=== PATIENT | female | born 1940 | race Caucasian/White ===

== ENCOUNTER 2023-10-17 11:15 | Outpatient (RCR) | payer MEDICARE, BC, SELFPAY ==
--- NOTE | 2023-10-11 15:24 | PT.OPDNX ---
PT [facility] Daily Note PT [facility] Daily Note Start: 09/09/23 09:38 Freq: Status: Active Protocol: Document 10/11/23 12:18 NLR (Rec: 10/11/23 15:22 NLR [id number]) E-signed By Sherri Heller DPT PT OP Daily Progress Note Visit Information Note Type Daily Note Visit Number 5 Insurance Information Insurance Name Medicare B,Blue Cross/Blue Shield Medical Diagnosis M17.12 Unilateral primary osteoarthritis, left knee Treating Diagnosis M25.562 Pain in L knee M25.662 Stiffness L knee Referring MD Linda Delgado PA-C ([facility]) Subjective Preferred Name MADI Subjective Patient reports whatever we did last week made a huge difference, my knee feels straighter and less pain. She asks about exercises she can do for her flat feet. Pain Comments 2/10 this morning (5/10 high over the past week). Pain can be sharp and/or achy. Sitting she has no pain. Patient takes 2 Tylenol BID. She takes Ibuprofen PRN during the day (several times per week). She uses Biofreeze, ice (she tries to do every day ). She has Voltaren but has not yet tried it due to fear over the package insert precautions. Precautions Treatment Precautions/Contraindications R knee TKA 2018 Weight Bearing Status Full Weight Bearing Home Exercise Home Exercise Comments Assessed and educated in HEP today. PDF was printed for patient. Instructions were provided for accessing HEP on [employer] [facility] [employer] on phone. Access Code: [email or web address] URL: [email or web address] Date: 10/11/2023 Prepared by: Sherri Campos Exercises - Seated Hamstring Stretch - 1-2 x daily - 5-7 x weekly - 1 -2 reps - 30-90 s hold - stretch exercise type - Seated Hip Abduction with Resistance - 1-2 x daily - 5- 7 x weekly - 2 sets - 10 reps - 2-3 second hold - Supine Quad Set on Towel Roll - 1-2 x daily - 5-7 x weekly - 2 sets - 10 reps - 2- 3 second hold - strength exercise type - Small Range Straight Leg Raise - 1-2 x daily - 5-7 x weekly - 2 sets - 10 reps - 2- 3 second hold - strength exercise type - Sidelying Quadriceps Stretch with Strap - 1-2 x daily - 5 -7 x weekly - 1-2 reps - 15-60 second hold - stretch exercise type - Heel Raises with Counter Support - 1 x daily - 5-7 x weekly - 2 sets - 10 reps - 2- 3 second hold - strength/ balance exercise type Patient Education - Ice Objective Other/Pertinent Objective HAND DOM: RIGHT ROM: 3-110 L knee (mild improvement in knee AROM noted ) STRENGTH: L quad 4-/5, L HS 3+ /5, L HF 4-/5 PALPATION: Tender to palpation L medial knee joint line, medial patellar tendon and pes anserine POSTURE: FHON, forward rounded shoulders, significant L knee genuvalgus and significant L>R pes planus EDEMA: Moderate edema mid thigh to ankle L leg FLEXIBILITY: Hypoflexibility noted L quad, IT band, hamstring GAIT: L>R genuvalgus, uses a SPC and at home a four wheeled walker FOOTWEAR: Wears SAS with [employer]kin ankle sleeves on both feet (6-7 years) - continues to fall into arches significantly OTHER PMH: HTN (controlled), arthritis, thyroid cancer ( remote), arthritis Patient Instructed in Risks/Benefits Yes Therapeutic Exercise Therapeutic Exercise Minutes (minutes) 42 Therapeutic Exercise: To Restore - Quad stretches - unable to Functional Status achieve stretch in sidelying or prone without significant assistance - standing she is unable to get foot close enough to her without using a chair which does not appear safe, and sitting turned to R with L knee off surface with supervision in front for safety is effective but not safe. Best option is sidelying with stretch strap - gave her info on stretch strap - Standing heel raises at counter - Seated prolonged HS stretch - SLR - patient taking higher than instructed but only a few inches - Supine banded bridge with red band - Seated banded hip abduction with red band - Supine SAQ with QS Treatment Minutes Timed Code Treatment Minutes 42 Total Treatment Time 42 Billing Units Therapeutic Exercise Units 3 Assessment/Impression Assessment/Impression Patient notes improvement in knee pain specifically with quad stretches. We struggled a bit finding a position to do quad stretch independently, but she is able to achieve stretch in sidelying with stretch strap. She wonders about foot mechanics and exercises to strengthen her arches. She tolerates heel raises at counter, but considering she has had pes planus her entire lift I think it's unreasonable to expect much difference with these. She sees Dr. Torres on 10/14/23. Plan of Care Physical Therapy Goals 1. Patient will be independent with home exercise program as instructed, modified and progressed by physical therapist in order to be independently and actively participating in their rehabilitation and return to prior level of function. Goal to be achieved by 12/06/2023. 2. Patient will demonstrate ability to walk for 30 minutes (s) without significant increase in pain greater than 2/10 to allow patient to be able to safely and independently return to participation in desired level of function with daily activities such general housekeeping without pain or difficulty. Goal to be achieved by 12/06/2023. 3. Patient will ascend/descend 2 full flight(s) of stairs with gaib-jaqw-qqex pattern without significant increase in difficulty or pain over 2/ 10 allowing for safe and independent mobility through their home/work environment. Goal to be achieved by 2023. Daily Plan of Care Continue per POC Daily Plan of Care Comments Pain improved over the past week. She is independent in her HEP, she sees Dr. Torres on 10/13 and returns for her final PT visit 10/16. She is hoping to avoid knee surgery. Equipment Information Equipment Information FWW and SPC with quad pod base . Recertification Information Initial Certification Date 09/09/23 Recertification Start Date 12/08/23
== END 2023-12-05 15:02 | disposition home or self-care (01) ==
PROVIDERS: PCP Student in an Organized Health Care Education/Training Program; Visit Provider Physician Assistant Surgical
DX: M17.12 Unilateral primary osteoarthritis, left knee (principal); Z51.89 Encounter for other specified aftercare
CPT/HCPCS: 97110; 97161; 97535

== ENCOUNTER 2023-11-12 07:28 | Day surgery (SDC) | payer MEDICARE, BC, SELFPAY ==
[2023-11-12] VITALS (24 sets, daily range): BP systolic 90–153; BP diastolic 55–79; PULSE 55–69; RESP 12–18; TEMP 35.5–36.9; O2SAT 93–100; BMI 26.7
[2023-11-12] MEDS: LACTATED RINGERS 1000 ML 1,000 ML 100 ML IV (08:00)
[2023-11-12] MEDS: OXYCODONE (CR) 10 MG TAB.ER.12H PO (08:00)
[2023-11-12] MEDS: SODIUM CHLORIDE 0.9 % (FLUSH) 10 ML SYRINGE IVF (08:00)
[2023-11-12] MEDS: CELECOXIB 200 MG CAPSULE PO (08:00)
[2023-11-12] MEDS: ACETAMINOPHEN 500 MG TABLET 1000 MG PO ×3 (08:00→21:07)
[2023-11-12] MEDS: SCOPOLAMINE 1 MG/3 DAY PATCH 1 PATCH TRANSDERMA (08:50)
[2023-11-12] MEDS: MIDAZOLAM HCL 1 MG/ML inj IVP (08:54)
--- NOTE | 2023-11-12 09:13 | P.NB_ITS ---
Nerve Block Nerve Block Time Seen by Provider: 09:00 Date Seen: 11/12/23 Type of block requested by surgeon for post-operative analgesia: geniculars and adductor canal Side: left Time out performed: Yes Verification of patient name: Yes Verification of date of : Yes Site marking: not applicable Name of person performing procedure: Barry Kumar Continuous monitoring Was continuous monitoring of O2 sat, B/P, equipment monitor phototypesetting, recorded every 15 minutes?: Yes Procedure Checklist: sterile prep, needles and gloves Ultrasound guided. Images saved: Yes Medications given in 5ml increments after negative aspiration: Ropivicaine %: 0.5 mL: 30 Needle gauge: 20 Decadron (mg): 10 Precedex (mcg): 25 Patient tolerated procedure well: Yes Block Charges Block Charge (with Pro Fee): Femoral Nerve Use of Ultrasound Machine for Block: Yes- US Guidance/pain block
--- NOTE | 2023-11-12 09:16 | SUR.PREOP ---
TIME?OUT:?0854 PT/RN/MDA?VERIFICATION?OF?SURGICAL?SITE,?PROCEDURE,?AND?CONSENT OBTAINED?PRIOR?TO?INVASIVE?PROCEDURE.
[2023-11-12] MEDS: CEFAZOLIN 2 GM INJ IVP (09:28)
[2023-11-12] MEDS: TRANEXAMIC ACID 100 MG/ML INJ 1000 MG IV (09:31)
--- NOTE | 2023-11-12 09:53 | SUR.OPER ---
SDS stated patient has an open wound under toe on right foot
--- NOTE | 2023-11-12 11:08 | CRLHL7_ITS ---
For Patients: As a result of the Cures Act, medical imaging exams and procedure reports are released immediately into your electronic medical record. You may view this report before your referring provider. If you have questions, please contact your health care provider. Indication: post op Technique: Two views left knee Findings/Impression: Hardware from a left total knee arthroplasty is in satisfactory position. Bone alignment is normal. No sign of acute fracture. Postop changes are within normal limits. Dictated by Barry Ortiz MD @ 11/12/2023 12:39:52 PM (Electronically Signed)
--- NOTE | 2023-11-12 11:10 | P.ORPRC_ITS ---
Procedure Note Date of procedure: 11/12/23 Procedure: PREOPERATIVE DIAGNOSIS: Left knee osteoarthritis POSTOPERATIVE DIAGNOSIS: Left knee osteoarthritis NAME OF OPERATION: Left total knee arthroplasty SURGEON: Hussein Torres MD STENCILER: TATYANA Gamez ANESTHESIA: Spinal ESTIMATED BLOOD LOSS: 0 mL COMPLICATIONS: None SPECIMENS: None DRAINS: None PREOPERATIVE ANTIBIOTICS: Ancef 2 grams IMPLANTS: 1. J&J Attune revision CRS # 7 posterior stabilized femur, with a 14 mm x 50 mm cemented stem 2. # 5 revision CRS fixed-bearing tibia, with a 14 mm x 50 mm cemented stem 3. # 7 posterior stabilized, 6 mm fixed-bearing polyethylene 4. 41 patella INDICATIONS: The patient is a 83-year-old with a longstanding history of severe, unrelenting left knee pain secondary to end-stage (grade IV) left knee osteoarthritis. Despite appropriate nonoperative management, including activity modification, anti-inflammatories, imrf-zfa-qlejqwd pain medication, bracing, physical therapy, and injections they continue to have pain and disability. Operative intervention was offered. The risks, benefits and expected outcomes were discussed in detail. These included but were not limited to: Infection, bleeding, injury to blood vessel or nerve, venous thromboembolism. All questions were answered to their satisfaction. Use of an clerical administrative assistant was necessary throughout the case for patient positioning and safety, soft tissue retraction, and closure. PROCEDURE: Spinal anesthesia was administered. The patient was placed supine on the operating table. The clerical administrative assistant made sure the patient was positioned appropriately. The lower extremity was prepped and draped in the usual sterile fashion. The limb was exsanguinated with the Cruz bandage. The pneumatic tourniquet was inflated to 300 mmHg. A standard anterior incision was made with the knee in flexion. Subcutaneous dissection was sharply taken through fascial layer #1. Full-thickness medial and lateral flaps were elevated. The clerical administrative assistant retracted the soft tissues and protected them throughout the case. A standard subvastus approach was made. The patella was subluxed. The infrapatellar fat pad was debrided. The menisci and cruciate ligaments were sharply d?brided. Marginal osteophytes were d?br ided with the rongeur. The drill was used to penetrate the femoral canal. The canal was aspirated and irrigated with pulse lavage. The intramedullary femoral guide was placed for a 5-degree valgus cut, removing 12 mm off the distal femur. The saw was used to make the cut. Whitesides line and the trans epicondylar axis were marked. The femoral sizing guide was pinned onto the distal femur. Three degrees of external rotation nicely parallels the transepicondylar axis. Pins were placed for posterior referencing. The four-in-one cutting guide was pinned onto the distal femur. The anterior, posterior, and chamfer cuts were made. The clerical administrative assistant protected the collateral ligaments. The revision trial was placed. The box cuts were made. The drill was used x2. The stemmed, boxed trial was placed and was an excellent fit. Attention was then turned to the proximal tibia. The extramedullary tibial guide was placed for a neutral varus/valgus cut with 5 degrees of posterior slope, removing 4 mm based off the medial tibial surface. The clerical administrative assistant protected the collateral ligaments and the neurovascular bundle. The saw was used to make the cut. Trial components were placed. The knee was nicely balanced in both flexion and extension. The trial components were removed. The tray was placed in appropriate rotation, parallel to our tibial cutting pins. It was pinned by the clerical administrative assistant and the drill x2 was used. The stemmed tibial trial was placed. The punch was used. The tray was removed. The punch was used again. Attention was then turned to the patella. [place] patellar thickness was 24 mm. The lobster claw resection guide was used with the 9.5 mm chris. The saw was used to make the cut. Drill holes were made by the clerical administrative assistant. The trial was placed and was an excellent fit. Cancellous surfaces were irrigated with pulse lavage and thoroughly dried by the clerical administrative assistant. We cemented the tibial component, then the femoral component. We impacted the 6 mm polyethylene onto the tibial tray. The knee was brought into full extension. We then cemented the patellar component. Excessive cement was removed. The cement was allowed to harden. The knee was taken through a range of motion and was found to be nicely balanced in both flexion and extension. The patella tracks centrally. The clerical administrative assistant did a three minute dilute Betadine solution soak. The clerical administrative assistant irrigated the wound with 3 liters of normal saline via pulse lavage. The clerical administrative assistant reapproximated the extensor mechanism with #1 Vicryl in an interrupted olfnvx-yv-opkps fashion. The clerical administrative assistant then ran the extensor mechanism with a #1 PDO Stratafix. The clerical administrative assistant closed the subcutaneous tissues with a 3-0 Stratafix and the skin with a running 3-0 Stratafix in a subcuticular fashion. Glue was used to seal the skin. The clerical administrative assistant placed a dry dressing. Sponge and needle counts were correct x2. The patient tolerated the procedure well. There were no apparent complications. They were carefully transferred to the hospital bed and taken to the postanesthesia care unit in satisfactory condition. PLAN: The patient will be mobilized with physical therapy. Aspirin will be used for DVT prophylaxis. They will be discharged to home once medically appropriate.
--- NOTE | 2023-11-12 11:57 | W.ANESCHARGE ---
Anesthesia Charges Start Date/Time Anesthesia Start Date: 11/12/23 Anesthesia Start Time: 09:15 Stop Date/Time Anesthesia Stop Date: 11/12/23 Anesthesia Stop Time: 11:55
[2023-11-12] MEDS: LACTATED RINGERS 1000 ML 1,000 ML 35 ML IV (12:06)
[2023-11-12] MEDS: HYDROmorphone 0.5 mg/0.5 ml inj IVP (13:10)
--- NOTE | 2023-11-12 15:36 | PC.NURSE ---
shift note: post op vss initiated @ 1235. pt tolerating fluids and ice. PP+ bilat. IS to 1500. drsg to lt knee c/d/i. kenia skinner in place due to low temp
[2023-11-12] MEDS: CEFAZOLIN 1 GM in 0.9 % SODIUM CHLORIDE Mini-bag 100 ML IVPB ×2 (15:43→23:36)
[2023-11-12] MEDS: OXYCODONE 5 MG TABLET PO (15:51)
[2023-11-12] MEDS: ONDANSETRON 2 MG/ML inj 4 MG IVP (16:37)
--- NOTE | 2023-11-12 17:33 | PM.IMCN1 ---
Date of Consult Patient: Joshua Patient Consult date: 11/12/23 Requesting Physician: Orthopedics Primary Care Provider: Ariela Canales PA-C Consult Narrative Narrative: Joya Casper is a 83 year old female seen in consultation for management of medical problems following left knee arthroplasty. Procedure performed today by Dr. Torres. No operative complications. Patient reports doing well at the time I see her. She was chilled after surgery and has been warmed up with a Dino Hugger. Her pain is adequately controlled at this point. She has a history of severe postoperative nausea and vomiting but reports this has been well controlled with the placement of a scopolamine patch. Preoperatively she has been doing well with no recent illness or injury. Preop physical did not identify any significant perioperative medical concerns. Review of Systems Narrative: No recent concerns except she is developing calluses on her 2nd and 4th toes of her right foot. Referred to Podiatry for this [facility] Medical History (Updated 11/12/23 @ 17:40 by Jaun Ann MD) Postoperative nausea and vomiting ?R11.2 - Nausea with vomiting, unspecified (ICD-10) ?Z98.890 - Other specified postprocedural states (ICD-10) Spinal stenosis of lumbar region ?M48.061 - Spinal stenosis, lumbar region without neurogenic claudication (ICD-10) Osteopenia ?M85.80 - Other specified disorders of bone density and structure, unspecified site (ICD-10) Colon polyps ?K63.5 - Polyp of colon (ICD-10) Hypercholesteremia ?E78.00 - Pure hypercholesterolemia, unspecified (ICD-10) Degenerative arthritis ?M19.90 - Unspecified osteoarthritis, unspecified site (ICD-10) GERD (gastroesophageal reflux disease) ?K21.9 - Gastro-esophageal reflux disease without esophagitis (ICD-10) Hypertension ?I10 - Essential (primary) hypertension (ICD-10) Thyroid cancer (01/20/14) ?C73 - Malignant neoplasm of thyroid gland (ICD-10) Surgical History (Updated 11/12/23 @ 17:40 by Jaun Ann MD) History of arthroplasty of left knee ?Z96.652 - Presence of left artificial knee joint (ICD-10) History of arthroscopy of right knee (09/14/09) ?Z98.890 - Other specified postprocedural states (ICD-10) History of thyroidectomy (01/04/12) ?E89.0 - Postprocedural hypothyroidism (ICD-10) History of breast biopsy (1988) ?Z98.890 - Other specified postprocedural states (ICD-10) History of lumpectomy ?Z98.890 - Other specified postprocedural states (ICD-10) History of tonsillectomy (1947) ?Z90.89 - Acquired absence of other organs (ICD-10) History of hysterectomy (04/1999) ?Z90.710 - Acquired absence of both cervix and uterus (ICD-10) History of total right knee replacement (04/17/17) ?Z96.651 - Presence of right artificial knee joint (ICD-10) Family History Sister Uterine cancer Mother Pancreatic cancer Daughter Breast cancer Father High blood pressure Alzheimers disease Diabetes Stroke Social History (Updated 11/12/23 @ 17:36 by Jaun Ann MD) Narrative: She lives alone in her own home. She has 4 steps to get into the house but then can live on 1 level. Immediately postoperatively she plans to live with her sister in [place]. Her sister has a town house with no stairs. She does not smoke. She does not drink alcohol. Healthcare power of criminal defense attorney would be her daughter and son. What is your current living situation?: I presently have a place to live Problems where you live: no known problems In the past 12 months, utilities in danger of being shut off: no In past 12 months, lack of transportation kept you from medical appts, meetings, work, or getting things needed for daily living: no In the past 12 mos, have been you worried that your food would run out before you had money to buy more?: never true In the past 12 mos, the food you bought just didn't last and you didn't have money to buy more?: never true Smoking Status: Never smoker Do you use any of these nicotine containing products: None Second hand tobacco smoke exposure: No How often do you have a drink containing alcohol: never AUDIT-C Alcohol total score: 0 Non-prescribed substance use: denies use Caffeine: No How often does anyone, including family, friends and others, physically hurt you: never How often does anyone, including family, friends and others, insult or talk down to you: never How often does anyone, including family, friends and others, threaten you with harm: never How often does anyone, including family, friends and others, scream or curse at you: never Meds Home Medications and Allergies Home Medications ?Medication ?Instructions ?Recorded ?Confirmed ?Type amlodipine 5 mg tablet 5 mg PO DAILY 08/20/23 11/12/23 History famotidine 40 mg tablet 40 mg PO HS 08/20/23 11/12/23 History hydrochlorothiazide 25 mg tablet 12.5 mg PO QAM 08/20/23 11/12/23 History losartan 25 mg tablet 25 mg PO DAILY 08/20/23 11/12/23 History montelukast 10 mg tablet 10 mg PO HS 08/20/23 11/12/23 History pravastatin 20 mg tablet 20 mg PO HS 08/20/23 11/12/23 History calcium carbonate (Tums) 300 mg PO TID 11/04/23 11/12/23 History cetirizine 10 mg tablet (Zyrtec) 10 mg PO DAILY 11/04/23 11/12/23 History cholecalciferol (vitamin D3) 25 25 mcg PO DAILY 11/04/23 11/12/23 History mcg (1,000 unit) capsule diphenhydramine 25 1 tab PO QHS PRN 11/04/23 11/12/23 History mg-acetaminophen 500 mg tablet (Tylenol PM Extra Strength) mometasone 0.1 % topical cream 1 applic topical DAILY 11/04/23 11/12/23 History Allergies Allergy/AdvReac Type Severity Reaction Status Date / Time Sulfa (Sulfonamide Allergy Verified 11/12/23 07:37 Antibiotics) trimethoprim Allergy Verified 11/12/23 07:37 Exam Narrative: Exam Narrative: She is alert and appears in no distress. She gives her own history. Eyes normal. Oropharynx normal. Neck is supple without mass or adenopathy. Respirations are clear to auscultation. Cardiovascular: S1, S2, regular rate and rhythm. No murmur gallop or rub. Abdomen: Bowel sounds active. Abdomen is soft without tenderness or mass. Extremities with intact pulses and sensation. No edema. Strength in bilateral feet and ankles is normal. She has small calluses on the tips of her 2nd and 4th toes of the right foot as well as a callus overall a subcutaneous mass on the medial right foot arch. These are not open wounds or draining. No erythema or tenderness. Const: Vital Signs, click to edit/add: Vital Signs - 24 hr 11/12/23 08:32 11/12/23 08:56 11/12/23 09:00 Temperature 97.7 F Pulse Rate 67 63 59 L Pulse Rate [Pulse Oximeter] Respiratory Rate 16 16 16 Blood Pressure 153/74 H 133/60 126/62 Blood Pressure [Ri ght Arm] Pulse Oximetry 96 100 100 Oxygen Delivery Me thod Room Air Room Air Nasal Cannula Oxygen Flow Rate 2 11/12/23 09:05 11/12/23 11:50 11/12/23 11:55 Temperature 97.1 F L Pulse Rate 55 L 64 61 Pulse Rate [Pulse Oximeter] Respiratory Rate 16 16 14 Blood Pressure 127/61 90/59 L 90/63 Blood Pressure [Ri ght Arm] Pulse Oximetry 96 95 95 Oxygen Delivery Me thod Nasal Cannula Nasal Cannula Oxygen Flow Rate 2 2 11/12/23 12:00 11/12/23 12:05 11/12/23 12:10 Temperature Pulse Rate 68 61 65 Pulse Rate [Pulse Oximeter] Respiratory Rate 14 12 14 Blood Pressure 98/55 L 91/58 L 92/79 Blood Pressure [Ri ght Arm] Pulse Oximetry 95 96 95 Oxygen Delivery Me thod Room Air Oxygen Flow Rate 11/12/23 12:15 11/12/23 12:21 11/12/23 12:35 Temperature 96.6 F L 95.9 F L Pulse Rate 60 59 L 62 Pulse Rate [Pulse Oximeter] Respiratory Rate 16 14 16 Blood Pressure 97/62 97/59 L 101/63 Blood Pressure [Ri ght Arm] Pulse Oximetry 94 97 94 Oxygen Delivery Me thod Room Air Oxygen Flow Rate 11/12/23 12:35 11/12/23 12:35 11/12/23 12:45 Temperature 95.9 F L 95.9 F L 96 F L Pulse Rate 62 61 Pulse Rate [Pulse Oximeter] 62 Respiratory Rate 16 16 16 Blood Pressure 101/63 111/65 Blood Pressure [Ri ght Arm] 101/63 Pulse Oximetry 94 94 95 Oxygen Delivery Me thod Room Air Room Air Room Air Oxygen Flow Rate 11/12/23 13:00 11/12/23 13:15 11/12/23 14:30 Temperature 96 F L 96 F L 97.8 F Pulse Rate 64 69 62 Pulse Rate [Pulse Oximeter] Respiratory Rate 16 16 16 Blood Pressure 115/63 122/74 122/68 Blood Pressure [Ri ght Arm] Pulse Oximetry 94 96 93 Oxygen Delivery Me thod Room Air Room Air Room Air Oxygen Flow Rate 11/12/23 14:49 11/12/23 14:50 11/12/23 15:00 Temperature 96 F L 96 F L Pulse Rate 62 56 L Pulse Rate [Pulse Oximeter] Respiratory Rate 16 16 16 Blood Pressure 123/70 117/67 Blood Pressure [Ri ght Arm] Pulse Oximetry 96 96 95 Oxygen Delivery Me thod Room Air Room Air Room Air Oxygen Flow Rate 11/12/23 15:30 11/12/23 16:30 Temperature 97.4 F L 97.1 F L Pulse Rate 64 61 Pulse Rate [Pulse Oximeter] Respiratory Rate 16 16 Blood Pressure 121/66 115/64 Blood Pressure [Ri ght Arm] Pulse Oximetry 95 95 Oxygen Delivery Me thod Room Air Room Air Oxygen Flow Rate Documenting provider has reviewed patient's vital signs: yes Assessment and Plan Assessment and plan (1) History of arthroplasty of left knee: Problem comment: 11/12/2023. Dr. Torres. No complications. Status: Acute (2) Postoperative nausea and vomiting: Problem comment: Well managed with scopolamine patch. Continue to monitor Status: Acute (3) Hypertension: Problem comment: Resume blood pressure medications as required by blood pressure. Status: Acute Plan Patient admitted for evaluation and management of postoperative complications including postoperative nausea and vomiting, management of chronic medical problems and chronic medications, physical therapy to evaluate and treat. Anticipate discharge with her sister tomorrow for outpatient follow-up.
[2023-11-12] MEDS: FAMOTIDINE 20 MG TABLET 40 MG PO (21:08)
[2023-11-12] MEDS: SENNOSIDES 1 TAB TABLET 2 TAB PO (21:09)
[2023-11-12] MEDS: ASPIRIN 81 MG TABLET EC PO (21:09)
[2023-11-12] MEDS: PRAVASTATIN SODIUM 20 MG TABLET PO (21:09)
[2023-11-12] MEDS: CALCIUM CARBONATE 500 MG CHEW PO (21:10)
[2023-11-12] MEDS: METOPROLOL TARTRATE 25 MG TABLET 12.5 MG PO (21:10)
[2023-11-12] MEDS: MONTELUKAST 10 MG TABLET PO (21:10)
[2023-11-13] MEDS: ACETAMINOPHEN 500 MG TABLET 1000 MG PO ×2 (01:44→08:07)
[2023-11-13] MEDS: LACTATED RINGERS 1000 ML 1,000 ML 75 ML IV (01:45)
[2023-11-13 01:47] VITALS: BP 144/71; PULSE 76; RESP 18; TEMP 36.6; O2SAT 97
[2023-11-13] MEDS: OXYCODONE 5 MG TABLET PO (06:21)
[2023-11-13 06:23] LABS: Basophils Percent Auto 0.1 % (0.0-3.0); Hematocrit 35.2 % (33.0-51.0); Hemoglobin* 11.7 gm/dL (12.0-16.0); Immature Granulocytes Pct Auto 0.1 %; Lymphocytes Percent Auto 9.1 % (20-44); Mean Corpuscular HGB Conc 33 gm/dL (32-36); Mean Corpuscular Hemoglobin 32 pg (26-34); Mean Corpuscular Volume 95 fL (80-100); Monocytes Percent Auto 7.3 % (0.0-11.0); Neutrophils Percent Auto 83.4 % (42.0-72.0); Platelet Count* 240 K/uL (140-440); Red Blood Count 3.69 m/uL (4.00-5.20); Slide Review Reflex No; White Blood Count* 14.91 K/uL (4.50-11.00)
[2023-11-13 06:38] LABS: Potassium* 3.8 mmol/L (3.6-5.1); Sodium* 133 mmol/L (135-149)
[2023-11-13 06:41] LABS: Blood Urea Nitrogen* 24 mg/dL (7-30); Creatinine* 0.7 mg/dL (0.5-1.5); Est. Creatinine Clearance* 42.18; Estimated Glomerular Filt Rate 86 ml/min
--- NOTE | 2023-11-13 06:50 | PC.NURSE ---
Pt is alert and oriented x3. Afebrile. Pt rates pain 2-4/10 in left knee, managed with cold pack,?scheduled Tylenol and PRN medications. Pt's left knee dressing is CDI. During gcokr-lb-xmruk?report previous RN reported pt had not voided in 6 hr since getting back from surgery. Previous RN reported bladder scanning pt for around 480 ml and straight catheterized pt for 650 ml at 2000. Pt was able to void independently around 0200 with 200 ml output and?300 ml output around 0600. Pt encouraged pt to drink more water when awake. Pt is up SBA with walker and gait belt and tolerating a regular diet.?
[2023-11-13 07:00] VITALS: BP 129/66; PULSE 94; RESP 16; TEMP 36.4; O2SAT 97
[2023-11-13 07:37] LABS: INR 0.95 (0.91-1.10); Prothrombin Time 13.3 Seconds
[2023-11-13] MEDS: SENNOSIDES 1 TAB TABLET 2 TAB PO (08:05)
[2023-11-13] MEDS: CALCIUM CARBONATE 500 MG CHEW PO (08:05)
[2023-11-13] MEDS: ASPIRIN 81 MG TABLET EC PO (08:05)
[2023-11-13] MEDS: CETIRIZINE HCL 10 MG TABLET PO (08:05)
[2023-11-13] MEDS: AMLODIPINE 5 MG TABLET PO (08:06)
[2023-11-13] MEDS: METOPROLOL TARTRATE 25 MG TABLET 12.5 MG PO (08:06)
--- NOTE | 2023-11-13 08:26 | PM.ORPN ---
Subjective Subjective Time Seen by Provider: 07:45 Date Seen: 11/13/23 Principal diagnosis: Status post left knee replacement Interval history: Joya is comfortable this morning. She denies nausea vomiting. She will discharge today to her sister's home. Ortho Exam Narrative Exam Narrative: Alert and oriented x3. Patient is in no acute distress. Converses without labored breathing. Hearing is grossly intact. Ambulates with a walker. Examination of the left lower extremity shows minimal soft tissue edema. Ecchymosis at the thigh. CMS intact left lower extremity. No erythema or warmth or sign of infection. Minimal effusion. She is able to straight leg raise. Calves are soft and nontender. Const Vital Signs, click to edit/add: Vital Signs - 24 hr 11/12/23 08:32 11/12/23 08:56 11/12/23 09:00 Temperature 97.7 F Pulse Rate 67 63 59 L Pulse Rate [Pulse Oximeter] Respiratory Rate 16 16 16 Blood Pressure 153/74 H 133/60 126/62 Blood Pressure [Right Arm] Pulse Oximetry 96 100 100 Oxygen Delivery Method Room Air Room Air Nasal Cannula Oxygen Flow Rate 2 11/12/23 09:05 11/12/23 11:50 11/12/23 11:55 Temperature 97.1 F L Pulse Rate 55 L 64 61 Pulse Rate [Pulse Oximeter] Respiratory Rate 16 16 14 Blood Pressure 127/61 90/59 L 90/63 Blood Pressure [Right Arm] Pulse Oximetry 96 95 95 Oxygen Delivery Method Nasal Cannula Nasal Cannula Oxygen Flow Rate 2 2 11/12/23 12:00 11/12/23 12:05 11/12/23 12:10 Temperature Pulse Rate 68 61 65 Pulse Rate [Pulse Oximeter] Respiratory Rate 14 12 14 Blood Pressure 98/55 L 91/58 L 92/79 Blood Pressure [Right Arm] Pulse Oximetry 95 96 95 Oxygen Delivery Method Room Air Oxygen Flow Rate 11/12/23 12:15 11/12/23 12:21 11/12/23 12:35 Temperature 96.6 F L 95.9 F L Pulse Rate 60 59 L 62 Pulse Rate [Pulse Oximeter] Respiratory Rate 16 14 16 Blood Pressure 97/62 97/59 L 101/63 Blood Pressure [Right Arm] Pulse Oximetry 94 97 94 Oxygen Delivery Method Room Air Oxygen Flow Rate 11/12/23 12:35 11/12/23 12:35 11/12/23 12:45 Temperature 95.9 F L 95.9 F L 96 F L Pulse Rate 62 61 Pulse Rate [Pulse Oximeter] 62 Respiratory Rate 16 16 16 Blood Pressure 101/63 111/65 Blood Pressure [Right Arm] 101/63 Pulse Oximetry 94 94 95 Oxygen Delivery Method Room Air Room Air Room Air Oxygen Flow Rate 11/12/23 13:00 11/12/23 13:15 11/12/23 14:30 Temperature 96 F L 96 F L 97.8 F Pulse Rate 64 69 62 Pulse Rate [Pulse Oximeter] Respiratory Rate 16 16 16 Blood Pressure 115/63 122/74 122/68 Blood Pressure [Right Arm] Pulse Oximetry 94 96 93 Oxygen Delivery Method Room Air Room Air Room Air Oxygen Flow Rate 11/12/23 14:49 11/12/23 14:50 11/12/23 15:00 Temperature 96 F L 96 F L Pulse Rate 62 56 L Pulse Rate [Pulse Oximeter] Respiratory Rate 16 16 16 Blood Pressure 123/70 117/67 Blood Pressure [Right Arm] Pulse Oximetry 96 96 95 Oxygen Delivery Method Room Air Room Air Room Air Oxygen Flow Rate 11/12/23 15:30 11/12/23 16:30 11/12/23 17:30 Temperature 97.4 F L 97.1 F L 97.1 F L Pulse Rate 64 61 61 Pulse Rate [Pulse Oximeter] Respiratory Rate 16 16 18 Blood Pressure 121/66 115/64 114/68 Blood Pressure [Right Arm] Pulse Oximetry 95 95 97 Oxygen Delivery Method Room Air Room Air Room Air Oxygen Flow Rate 11/12/23 18:41 11/12/23 23:32 11/12/23 23:32 Temperature 97.0 F L 98.4 F Pulse Rate 66 Pulse Rate [Pulse Oximeter] 63 Respiratory Rate 16 16 16 Blood Pressure 113/79 Blood Pressure [Right Arm] 119/78 Pulse Oximetry 96 97 97 Oxygen Delivery Method Room Air Room Air Room Air Oxygen Flow Rate 11/13/23 01:47 11/13/23 07:00 11/13/23 07:00 Temperature 97.8 F 97.6 F Pulse Rate Pulse Rate [Pulse Oximeter] 76 94 Respiratory Rate 18 16 Blood Pressure Blood Pressure [Right Arm] 144/71 H 129/66 Pulse Oximetry 97 97 Oxygen Delivery Method Room Air Room Air Room Air Oxygen Flow Rate 2 Assessment and Plan Assessment and plan (1) History of arthroplasty of left knee: Problem details: 11/12/2023. Dr. Torres. No complications. Status: Acute Assessment and Plan: Plan for discharge is today to her sister's home if she meets discharge criteria. DVT prophylaxis includes aspirin 81 mg twice daily x1 month, Compression stockings as needed for swelling. Frequent ambulation, every hour throughout the day. Remove dressing in 1 week. Observe wound and phone Orthopedics with any questions or concerns Return to clinic in 1 week for a wound check Return to clinic in 6 weeks with surgeon Minimize narcotic use. Wean off and discontinue soon as possible. Activities as tolerated. No strenuous activity. Outpatient physical therapy as scheduled. Ice and elevate the operative extremity. No restriction on ice.
== END 2023-11-13 10:40 | disposition home or self-care (01) ==
LOC: OR 07:29 → MEDSURG 07:31
PROVIDERS: PCP Student in an Organized Health Care Education/Training Program; Visit Provider Orthopaedic Surgery
PROC: (CPT 27447; principal; 2023-11-12 09:45)
DX: M17.12 Unilateral primary osteoarthritis, left knee (principal); G89.18 Other acute postprocedural pain; R11.2 Nausea with vomiting, unspecified; I10 Essential (primary) hypertension; K21.9 Gastro-esophageal reflux disease without esophagitis; E78.00 Pure hypercholesterolemia, unspecified; M85.80 Other specified disorders of bone density and structure, unspecified site; M48.061 Spinal stenosis, lumbar region without neurogenic claudication; Z79.82 Long term (current) use of aspirin
CPT/HCPCS: 27447; 01402; 36415; 64447; 73560; 76942; 82565; 84132; 84295; 84520; 85025; 85610; 97110; 97116; 97161; 97165; 97530; 97535; A9270; C1776; J0690; J1100; J1170; J2250; J2405; J2704; J2795; J3010; J7120

== ENCOUNTER 2023-12-30 14:00 | Outpatient (RCR) | payer MEDICARE, BC, SELFPAY ==
--- NOTE | 2023-11-14 15:45 | PT.OPEX ---
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 Torres Subjective Subjective Patient is a 83 year old female who presents to physical therapy with signs and symptoms consistent with s /p left TKA on 11/12/23. She is two days postop and just got out of the hospital yesterday. She reports that she did stay in the hospital overnight . She reports that she is staying at her sisters house in [place] for a few weeks to recover. She is staying here because there are no steps that she needs to do. She reports that the surgery went well. She reports that she slept good last night and is sleeping in a bed. She reports that she is doing her exercises in bed and in her chair. She reports that she is doing her exercises at least twice to three times per day. Significant past medical history includes R TKA , hypertension, thyroid cancer (remote) and arthritis. Pain Comments Today: 5-6/10 on a 0-10 pain scale with 10 = extreme pain At its worst: 8/10 At its best: 5-6/10 Current Work Status Retired Precautions Weight Bearing Status Weight Bear as Tolerated Objective Other/Pertinent Objective GAIT/FUNCTIONAL MOBILITY Ambulates with FWW KNEE ROM Left: Extension/Flexion: -10-85 beginning of session, -5-100 w OP end of session Tubigrip size H given Moderate swelling and bruising noted TX: Reviewed/demonstrated on HEP including: long sitting quad ankle pumps supine heel slide with strap supine quad sets supine SAQ SLR with quad set seated long arc quad seated knee flexion AAROM supine knee extension stretch on towel roll Manual stretching into flexion and extension with OP Assessment Assessment/Impression Pt is a 83 year old female who presents to PT s/p left TKA on 11/12/23. Patient also has notable objective findings including limited ROM, tenderness to palpation, and decreased strength which are also likely contributing to the problem. Patient is a good candidate for skilled therapy to target deficits described above. Skilled PT intervention is necessary for use of therapeutic exercise manual therapy, neuromuscular re- education, gait training, and therapeutic activity. Functional impairments include difficulty with: standing, walking, sleeping, exercising and ADLs. See appropriate sections of PT eval for complete list of goals and POC . D/C plan and criteria is for pt to achieve the goals as listed below or until max rehab potential is met. Pt was agreeable with plan of care and goals established. Primary Functional Limitations standing walking exercising ADLs sleeping Plan of Care Rehabilitation Potential Good Physical Therapy Goals STG: (prior to surgery) !. Pt will demonstrate independence in performance of home exercise program with the use of video and/or handouts in order to optimize functional mobility and reduce risk for re-injury. MET LTG: (post surgery) 10-12 weeks 1) Pt will be indep with HEP for [facility] management of pain/symptoms 2) Pt will improve left knee AROM at least 0-120* for improved sit to stand transfers 3) Patient will ascend/descend at least 14 steps using single rail and reciprocal pattern to improve ease of mobility at home/community to get to basement. 4) Patient will ambulate at least 15 minutes with single point cane, minimal antalgic gait for improved community mobility Coordination/Communication With Referral Source Treatment Plan/Direct Interventions Gait Training,Ice/Cold/ Vasopneumatic,Manual Therapy, Neuromuscular Re-ed, Therapeutic Activities, Therapeutic Exercises Patient Will Be Discharged From Therapy Independently Progressing Evaluation Billing Untimed Code Treatment Minutes 30 Complexity Low Certification Information Initial Certification Date 11/14/23 Ending Certification Date 02/11/24 Provider Signature Required Yes Provider Signature Shows Agreement With POC & Medical Necessity Physician NPI Number Write NPI# Here Physician Comment/Change : Physician Signature & Date Requested Please Sign/Date Here
--- NOTE | 2023-12-24 15:02 | PT.OPDNX ---
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 Torres Subjective Preferred Name JOYA Subjective Joya arrives with her cane walking well today. She saw her doctor yesterday regarding her blood pressure and feeling tired. She had some blood tests but has not received results yet. Pain Comments 04/17 Date of Last Physician Visit 11/20/23 Date of Next Physician Visit 12/25/23 Date of Surgery (If applicable) 11/12/23 Precautions Treatment Precautions/Contraindications Dr. Torres approved her being able to drive. Weight Bearing Status Weight Bear as Tolerated Home Exercise Home Exercise Comments Assessed and educated in HEP today. PDF was printed for patient. Instructions were provided for accessing HEP on [employer] amy on phone. Access Code: [email or web address] URL: [email or web address] Date: 12/24/2023 Prepared by: Sherri Campos Exercises - Supine Short Arc Quad - 2-3 x daily - 7 x weekly - 1-2 sets - 10 reps - strength exercise type - Active Straight Leg Raise with Quad Set - 2-3 x daily - 7 x weekly - 1-2 sets - 10 reps - 2-3 second hold - strength exercise type - Seated Long Arc Quad - 2-3 x daily - 7 x weekly - 1-2 sets - 10 reps - 2-3 second hold - strength exercise type - Seated Knee Extension Stretch with Chair - 2-3 x daily - 7 x weekly - 1-2 reps - 20-60 second hold - range of motion exercise type - Seated Knee Flexion Stretch - 2-3 x daily - 7 x weekly - 1-2 reps - 20-60 second hold - range of motion/stretch exercise type - Seated Hamstring Stretch - 1-2 x daily - 5-7 x weekly - 1 -2 reps - 30-90 s hold - stretch exercise type - Achilles Tendon/Calf Stretches - 1-2 x daily - 5-7 x weekly - 1-2 reps - 30-90 second hold - stretch exercise type - Controlled Step Up - 2-3 x daily - 5-7 x weekly - 1 sets - 10 reps - 2-3 second hold - strength exercise type Objective Other/Pertinent Objective GAIT: Ambulating with SPC ROM: L knee 5-114 with overpressure (R knee 120) STRENGTH: L knee quad 3+/5, hamstring 4/5 Patient Instructed in Risks/Benefits Yes Therapeutic Exercise Therapeutic Exercise Minutes (minutes) 30 Therapeutic Exercise: To Restore - Recumbent bike full Functional Status revolutions for ROM seat 6 - Leg press B 90#, L 70# - Hamstring curls 40# - Controlled step up 6 step - remains difficult - Standing HC stretch on bar - Seated hamstring stretches Manual Therapy Techniques Manual Therapy Minutes (minutes) 15 Manual Therapy Techniques - Supine manual edema drainage all the way up leg from foot - much improved from earlier this week but still edematous and bruised Treatment Minutes Timed Code Treatment Minutes 45 Total Treatment Time 45 Billing Units Manual Therapy Units 1 Therapeutic Exercise Units 2 Assessment/Impression Assessment/Impression Patient doing well at home. Stuggling with fatigue this week, but is continuing to do her HEP. She has not yet attempted driving because she is unsure about getting into and out of her Buick on the L side of the car. Stairs are improving, step over step remains difficult. She has been hoping to DC from therapy soon, but step ups are still difficult. Have encouraged her to do several more visits to work on strength on stairs. She sees Dr. Torres tomorrow . Plan of Care Physical Therapy Goals STG: (prior to surgery) 1. Pt will demonstrate independence in performance of home exercise program with the use of video and/or handouts in order to optimize functional mobility and reduce risk for re-injury. MET LTG: (post surgery) 10-12 weeks 1. Pt will be indep with HEP for manager terminal management of pain/symptoms 2) Pt will improve left knee AROM at least 0-120* for improved sit to stand transfers 3) Patient will ascend/descend at least 14 steps using single rail and reciprocal pattern to improve ease of mobility at home/community to get to basement. 4) Patient will ambulate at least 15 minutes with single point cane, minimal antalgic gait for improved community mobility Daily Plan of Care Continue per POC Daily Plan of Care Comments Work on functional strengthening on steps - added controlled step up, need to progress to controlled step down. She is hoping to DC soon, and other than strength on stairs she is I and doing well. Have encouraged her to do a few more visits to advance functional strengthening on stairs.
--- NOTE | 2023-12-30 14:34 | PT.OPDNX ---
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 Torres Subjective Preferred Name JOYA Subjective Joya arrives with her cane walking well today. She is overall doing quite well. She is doing stairs at home and tolerates movement. She is doing her HEP regularly. Pain Comments 0-04/17 Date of Last Physician Visit 11/20/23 Date of Next Physician Visit 12/25/23 Date of Surgery (If applicable) 11/12/23 Precautions Treatment Precautions/Contraindications Dr. Torres approved her being able to drive. Weight Bearing Status Weight Bear as Tolerated Home Exercise Home Exercise Comments Assessed and educated in HEP today. PDF was printed for patient. Instructions were provided for accessing HEP on [employer] amy on phone. Access Code: [email or web address] URL: [email or web address] Date: 12/27/2023 Prepared by: Sherri Campos Exercises - Supine Short Arc Quad - 2-3 x daily - 7 x weekly - 1-2 sets - 10 reps - strength exercise type - Active Straight Leg Raise with Quad Set - 2-3 x daily - 7 x weekly - 1-2 sets - 10 reps - 2-3 second hold - strength exercise type - Seated Long Arc Quad - 2-3 x daily - 7 x weekly - 1-2 sets - 10 reps - 2-3 second hold - strength exercise type - Seated Knee Extension Stretch with Chair - 2-3 x daily - 7 x weekly - 1-2 reps - 20-60 second hold - range of motion exercise type - Seated Knee Flexion Stretch - 2-3 x daily - 7 x weekly - 1-2 reps - 20-60 second hold - range of motion/stretch exercise type - Seated Hamstring Stretch - 1-2 x daily - 5-7 x weekly - 1 -2 reps - 30-90 s hold - stretch exercise type - Achilles Tendon/Calf Stretches - 1-2 x daily - 5-7 x weekly - 1-2 reps - 30-90 second hold - stretch exercise type - Controlled Step Up - 2-3 x daily - 5-7 x weekly - 1 sets - 10 reps - 2-3 second hold - strength exercise type - Seated Ankle Plantar Flexion with Resistance Loop - 1-2 x daily - 5-7 x weekly - 2 sets - 10 reps - 2-3 second hold - strength exercise type - Seated Ankle Dorsiflexion with Anchored Resistance - 1- 2 x daily - 5-7 x weekly - 2 sets - 10 reps - 2-3 second hold - strength exercise type - Heel Raises with Counter Support - 1-2 x daily - 5-7 x weekly - 1-2 sets - 10 reps - 2-3 second hold - strength/ balance exercise type - Standing Single Leg Stance with Counter Support - 1-2 x daily - 5-7 x weekly - 1-5 reps - 10-30 second hold - balance exercise type Objective Other/Pertinent Objective GAIT: Ambulating with SPC ROM: L knee 0-118 (R knee 120) STRENGTH: L knee quad 4/5, hamstring 4/5 Patient Instructed in Risks/Benefits Yes Therapeutic Exercise Therapeutic Exercise Minutes (minutes) 15 Therapeutic Exercise: To Restore - Recumbent bike full Functional Status revolutions for ROM seat 6 - Heel raises at counter - Single leg stance at counter - Ankle dorsiflexion with red band - Ankle plantarflexion with green band - Controlled step up 6 step - remains difficult - Standing HC stretch on bar - Seated hamstring stretches - Leg press B 90#, L 70# - Hamstring curls 40# Treatment Minutes Timed Code Treatment Minutes 15 Total Treatment Time 15 Billing Units Therapeutic Exercise Units 1 Assessment/Impression Assessment/Impression She is doing well overall, continues to walk with a SPC which likely will be her baseline due to low back issues. She is independent in HEP, goals achieved. Plan of Care Physical Therapy Goals STG: (prior to surgery) 1. Pt will demonstrate independence in performance of home exercise program with the use of video and/or handouts in order to optimize functional mobility and reduce risk for re-injury. MET LTG: (post surgery) 10-12 weeks 1. Pt will be indep with HEP for senior living management of pain/symptoms 2) Pt will improve left knee AROM at least 0-120* for improved sit to stand transfers 3) Patient will ascend/descend at least 14 steps using single rail and reciprocal pattern to improve ease of mobility at home/community to get to basement. 4) Patient will ambulate at least 15 minutes with single point cane, minimal antalgic gait for improved community mobility Daily Plan of Care Discharge Daily Plan of Care Comments Work on functional strengthening on steps - added controlled step up, need to progress to controlled step down. She is hoping to DC soon, and other than strength on stairs she is I and doing well. Have encouraged her to do a few more visits to advance functional strengthening on stairs and ankle control. Equipment Information Equipment Information FWW, SPC, green and red theraband Discharge Note Discharge Summary She is doing well overall, continues to walk with a SPC which likely will be her baseline due to low back issues. She is independent in HEP, goals achieved. Date of First Visit for Therapy 11/14/23 Date of Last Visit for Therapy 12/30/23 Initial Primary Functional Limitations Unable to stand or walk without walker, unable to do stairs, unable to transfer into and out of bed independently. Initial Pain Level 8/10 Pain Level at Discharge 0-1/10 Interventions Provided During Treatment Gait Training,Manual Therapy, Neuromuscular Re-Ed, Therapeutic Activities, Therapeutic Exercise,Self Care /Home Management Recommendations/Reason for Discharge Met All Therapy Goals Discharge Instructions DC with HEP Thank You For This Referral Thank you for this physical therapy referral. Discharge is attached. Signature not required. Contact us if you have any questions or concerns by phone at [phone] or by fax at [phone] attn: Sherri Heller, PT, DPT.
== END 2024-02-06 15:19 | disposition home or self-care (01) ==
PROVIDERS: PCP Student in an Organized Health Care Education/Training Program; Visit Provider Orthopaedic Surgery
DX: M17.12 Unilateral primary osteoarthritis, left knee (principal); Z96.652 Presence of left artificial knee joint; Z51.89 Encounter for other specified aftercare
CPT/HCPCS: 97110; 97116; 97140; 97161; A9270

== ENCOUNTER 2024-03-15 13:32 | Outpatient (CLI) | payer MEDICARE, BC, SELFPAY | END 2024-03-15 13:33 | disposition home or self-care (01) | LOC: NFLDREF 03-18 06:25 | PROVIDERS: PCP Student in an Organized Health Care Education/Training Program; Referring Provider Student in an Organized Health Care Education/Training Program; Visit Provider Physician Assistant | DX: N30.00 Acute cystitis without hematuria (principal) | CPT/HCPCS: 87086 ==